=== PATIENT | male | born 1950 | race Hispanic/Latino ===

== ENCOUNTER 2017-01-13 14:52 | Outpatient (CLI) | payer OTHER ==
--- NOTE | 2017-01-13 17:21 | XRay Report ---
Left hip: Hip pain. The femoral head is somewhat sclerotic and heterogeneously calcified. The articular surface in is irregular with areas of flattening and subchondral erosion. There is [id number] articulation of the hip joint. An AP view that includes the right hip shows a generally unremarkable hip. Suspect degenerative changes of the lower lumbar spine but there is mild rotation limiting evaluation. Impressions: Severe degenerative left hip changes and probable osteonecrosis of the femoral head. Right knee: Knee pain. There is severe narrowing of the medial joint compartment with periarticular spurs. Small spur involving the lateral plateau. The articular surfaces appears generally smooth. Mild retropatellar narrowing with femoral spur at the superior articulation. There is a mild genu valgus angulation. The bones are well-mineralized. No swelling and no effusion. Vascular calcification. Impressions: Degenerative knee changes predominantly involving medial compartment.
--- NOTE | 2017-01-13 17:23 | XRay Report ---
Left hip: Hip pain. The femoral head is somewhat sclerotic and heterogeneously calcified. The articular surface in is irregular with areas of flattening and subchondral erosion. There is [id number] articulation of the hip joint. An AP view that includes the right hip shows a generally unremarkable hip. Suspect degenerative changes of the lower lumbar spine but there is mild rotation limiting evaluation. Impressions: Severe degenerative left hip changes and probable osteonecrosis of the femoral head. Right knee: Knee pain. There is severe narrowing of the medial joint compartment with periarticular spurs. Small spur involving the lateral plateau. The articular surfaces appears generally smooth. Mild retropatellar narrowing with femoral spur at the superior articulation. There is a mild genu valgus angulation. The bones are well-mineralized. No swelling and no effusion. Vascular calcification. Impressions: Degenerative knee changes predominantly involving medial compartment.
== END 2017-01-13 14:53 | disposition home or self-care (01) ==
LOC: SPVIMAG 14:52
PROVIDERS: ATTEND Physical Medicine & Rehabilitation
DX: M17.12 Unilateral primary osteoarthritis, left knee (principal); M16.12 Unilateral primary osteoarthritis, left hip; M87.851 Other osteonecrosis, right femur

== ENCOUNTER 2017-03-01 09:02 | Outpatient (CLI) | payer OTHER ==
--- NOTE | 2017-03-01 10:07 | XRay Report ---
XRAY LEFT HIP 2 VIEWS: 03/01/17 09:02:00 CLINICAL: Left hip pain. 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 Normal appearance of the prosthesis. No apparent loosening. Mild osteopenia. No fracture or dislocation. Mild/moderate arthritis of the right hip. The pelvic bones are intact. Extensive vascular calcifications. IMPRESSION: Status post left hip replacement.Mild/moderate arthritis of the right hip.
== END 2017-03-01 09:03 | disposition home or self-care (01) ==
LOC: SPVIMAG 09:02
PROVIDERS: ATTEND Orthopaedic Surgery Sports Medicine
DX: M16.12 Unilateral primary osteoarthritis, left hip (principal); M85.88 Other specified disorders of bone density and structure, other site; M25.852 Other specified joint disorders, left hip; Z96.642 Presence of left artificial hip joint